=== PATIENT | female | born 1960 | race African-American/Black ===

== ENCOUNTER 2016-10-23 07:14 | Inpatient (IN) | payer OTHER ==
[2016-10-19 10:13] VITALS: BMI 43.9
[2016-10-23] MEDS ORDERED: ROPIVICAINE 0.2%/MORPH PF/KETOROLAC - 51ML DISP.SYRINGE IA ONE ×2 (07:17→10:04)
[2016-10-23] MEDS ORDERED: TRANEXAMIC ACID 1000 MG/10 ML VIAL IVPUSH ONE (07:17)
[2016-10-23] MEDS ORDERED: CEFAZOLIN 2 GM/D5W 50 ML IVPB ONE (07:17)
[2016-10-23] MEDS ORDERED: MIDAZOLAM HCL 2 MG/2 ML SINGLE DOSE VIAL ONE ×2 (07:35→08:57)
[2016-10-23] MEDS ORDERED: EPINEPHrine/PF 1 MG/1 ML (1:1,000) AMPULE ONE (07:35)
[2016-10-23] MEDS ORDERED: ROPIVACAINE HCL 0.5% 30ML VIAL ONE (07:36)
[2016-10-23] MEDS: oxyCODONE HCL 10 MG SUSTAINED ACTING TABLET PO ONE ×2 (07:45→16:53)
[2016-10-23] MEDS: GABAPENTIN 300 MG CAPSULE (FP) PO ONE ×2 (07:45→16:53)
[2016-10-23] MEDS: CELECOXIB 200 MG CAPSULE PO ONE ×2 (07:45→16:53)
--- NOTE | 2016-10-23 09:08 | HP ---
Admitting History and Physical - Admission Chief Complaint: severe right hip avascular necrosis History of Present Illness: 56yo female with progressive worsening bilateral hip pain and degeneration x 2 years, inability to ambulate. In severe pain. Has seen multiple orthopedists who recommended bilateral hip replacement. History Source: Patient, Medical Record Limitations to Obtaining History: No Limitations - Past Medical History Cardiovascular: Yes: HTN, Other (mitral valve prolapse) ...LMP Comment: "NOT IN A LONG TIME" Psych: Yes: Depression Musculoskeletal: Yes: Chronic low back pain, Osteoarthritis - Past Surgical History Past Surgical History: Yes: Laminectomy Additional Past Surgical History: cervical fusion, carpal tunnel release - Smoking History Smoking history: Never smoked Have you smoked in the past 12 months: No Aproximately how many cigarettes per day: 0 - Alcohol/Substance Use Hx Alcohol Use: Yes (OCCASIONAL) - Social History Usual Living Arrangement: Yes: With Spouse Home Medications - Allergies Allergies/Adverse Reactions: Allergies Allergy/AdvReac Type Severity Reaction Status Date / Time No Known Allergies Allergy Verified 10/23/16 07:52 - Home Medications Home Medications: Ambulatory Orders Oxycodone Sr [Oxycontin*SA*] 10 mg PO BID PRN #16 tab.er.12h 06/10/12 Oxycodone HCl/Acetaminophen [Percocet 5-325 mg Tablet] 1 - 2 tab PO Q6H #10 tablet 11/02/12 Gabapentin 600 mg PO DAILY 10/23/16 Physical Examination Vital Signs: Vital Signs Temperature 98 F 10/23/16 08:06 Pulse Rate 68 10/23/16 08:06 Respiratory Rate 17 10/23/16 08:06 Blood Pressure 143/77 10/23/16 08:06 O2 Sat by Pulse Oximetry (%) Constitutional: Yes: Well Nourished, No Distress, Anxious Eyes: Yes: WNL, Conjunctiva Clear HENT: Yes: WNL, Atraumatic, Normocephalic Neck: Yes: WNL Cardiovascular: Yes: WNL, Regular Rate and Rhythm Respiratory: Yes: WNL, Regular Gastrointestinal: Yes: WNL, Soft, Abdomen, Obese ...Rectal Exam: Yes: Deferred Musculoskeletal: Yes: Back Pain, Joint Stiffness, Joint Swelling, Muscle Pain, Muscle Weakness Extremities: Yes: WNL Edema: No Peripheral Pulses WNL: Yes Integumentary: Yes: WNL Neurological: Yes: WNL, Alert, Oriented ...Motor Strength: WNL Psychiatric: Yes: WNL, Alert, Oriented Labs: reviewed in chart Imaging - Results X-ray: Image Reviewed Cat Scan: Report Reviewed, Image Reviewed Problem List - Problems (1) Osteoarthritis of right hip Assessment/Plan: 56yo female with severe bilateral hip OA for right ANITRA Code(s): M16.11 - UNILATERAL PRIMARY OSTEOARTHRITIS, RIGHT HIP Qualifiers: Osteoarthritis type: primary Qualified Code(s): M16.11 - Unilateral primary osteoarthritis, right hip
[2016-10-23] MEDS ORDERED: HYDROmorphone HCL CARPU-JECT 1 MG/1 ML DISP.SYRIN IVPUSH PRN (10:17)
[2016-10-23] MEDS ORDERED: oxyCODONE HCL 5 MG TABLET PO PRN ×2 (10:17→10:31)
[2016-10-23] MEDS ORDERED: LACTATED RINGERS SOLUTION 1,000 ML IV SCH ×2 (10:30→14:00)
[2016-10-23] MEDS ORDERED: ONDANSETRON 4 MG/2 ML VIAL IVPUSH PRN (10:30)
[2016-10-23] MEDS ORDERED: PROMETHAZINE HCL 25 MG/1 ML VIAL IVPUSH PRN (10:33)
[2016-10-23] MEDS ORDERED: TRANEXAMIC ACID 1000 MG/10 ML VIAL ONE (10:53)
[2016-10-23] MEDS ORDERED: ceFAZolin SODIUM 1 GM VIAL ONE (12:16)
[2016-10-23] MEDS ORDERED: BUPIVACAINE HCL/EPINEPHRINE/PF 30 ML VIAL IJ ONE (13:08)
[2016-10-23] MEDS ORDERED: BUPIVACAINE HCL/PF 0.5% (5MG/ML) 10 ML VIAL ONE (13:09)
[2016-10-23] MEDS ORDERED: LIDOCAINE HCL 2% (20ML MULTI-DOSE VIAL) NR ONE (13:16)
[2016-10-23] MEDS ORDERED: MAGNESIUM HYDROX 2400MG/30ML ORAL SUSPENSION 30 ML CUP PO PRN (13:57)
[2016-10-23] MEDS ORDERED: ONDANSETRON 4 MG/2 ML VIAL IVPB PRN (13:57)
[2016-10-23] MEDS ORDERED: MAG HYDROX/AL HYDROX/SIMETH 30 ML UNIT-DOSE CUP PO PRN (13:57)
--- NOTE | 2016-10-23 13:57 | OP ---
Operative Note - Note: Operative Date: 10/23/16 Pre-Operative Diagnosis: right hip OA Operation: right ANITRA Post-Operative Diagnosis: Same as Pre-op Surgeon: Cam Ward Transitions Manager: Maile Michelle Anesthesia: Spinal Estimated Blood Loss (mls): 250
[2016-10-23] MEDS ORDERED: ACETAMINOPHEN 1000 MG/100 ML VIAL (NON FORMULARY) IVPB ONE ×2 (14:30)
[2016-10-23] MEDS ORDERED: KETOROLAC TROMETHAMINE 30 MG/1 ML VIAL IVPUSH ONE (14:30)
[2016-10-23] MEDS ORDERED: traMADol HCL 50 MG TABLET ONE (14:59)
[2016-10-23] MEDS: traMADol HCL 50 MG TABLET PO SCH ×2 (15:00→16:56)
[2016-10-23] MEDS: KETOROLAC TROMETHAMINE 30 MG/1 ML VIAL IVPUSH SCH ×2 (16:56→21:22)
[2016-10-23] MEDS: ACETAMINOPHEN 325 MG TABLET (FP) PO SCH ×2 (17:02→17:03)
[2016-10-23] MEDS: CEFAZOLIN 2 GM/D5W 50 ML IVPB SCH (18:24)
[2016-10-23] MEDS ORDERED: ACETAMINOPHEN 325 MG TABLET (FP) PO SCH (20:30)
[2016-10-23] MEDS: FERROUS SO4 325 MG TABLET (FP) PO SCH (21:23)
[2016-10-23] MEDS: APIXABAN 2.5 MG TABLET PO SCH (21:23)
[2016-10-23] MEDS: ASCORBIC ACID 500 MG TABLET (FP) PO SCH (21:23)
[2016-10-23] MEDS: CELECOXIB 200 MG CAPSULE PO SCH (21:23)
[2016-10-23] MEDS: SENNOSIDES/DOCUSATE COMBO (SENNA PLUS) TABLET (UD) PO SCH (21:24)
[2016-10-23] MEDS ORDERED: GABAPENTIN 300 MG CAPSULE (FP) PO SCH ×2 (22:00)
[2016-10-23] MEDS ORDERED: oxyCODONE HCL 10 MG SUSTAINED ACTING TABLET PO SCH (22:00)
[2016-10-24] MEDS: CEFAZOLIN 2 GM/D5W 50 ML IVPB SCH (01:09)
[2016-10-24] MEDS: ACETAMINOPHEN 325 MG TABLET (FP) PO SCH ×4 (02:10→23:27)
[2016-10-24] MEDS: traMADol HCL 50 MG TABLET PO SCH ×3 (02:11→16:14)
[2016-10-24] MEDS: KETOROLAC TROMETHAMINE 30 MG/1 ML VIAL IVPUSH SCH ×2 (02:12→08:34)
--- NOTE | 2016-10-24 07:23 | CONSULT ---
[id number] for medical management. HISTORY OF PRESENT ILLNESS: patient is a 56 y/o obese female, with a past medical history of bilateral hip degeneration, hypertension (no medications). patient reports she was taking lasix for billateral leg swelling and hypertension. She reports stopping the medication as per the recommendation of her PCP. patient is s/p right david hip replacement under spinal anesthesia. Patient reports feeling well, she reports pain upon movement to the right hip. patient denies any parethesia to the right lower extremity. patient is speaking in full sentences denies any chest pain or shot REVIEW OF SYSTEMS: CONSTITUTIONAL: Absent: fever, chills, diaphoresis, generalized weakness, malaise, loss of appetite, weight change HEENT: Absent: rhinorrhea, nasal congestion, throat pain, throat swelling, difficulty swallowing, mouth swelling, ear pain, eye pain, visual changes CARDIOVASCULAR: Absent: chest pain, syncope, palpitations, irregular heart rate, lightheadedness , peripheral edema RESPIRATORY: Absent: cough, shortness of breath, dyspnea with exertion, orthopnea, wheezing, stridor, hemoptysis GASTROINTESTINAL: Absent: abdominal pain, abdominal distension, nausea, vomiting, diarrhea, constipation, melena, hematochezia GENITOURINARY: Absent: dysuria, frequency, urgency, hesitancy, hematuria, flank pain, genital pain MUSCULOSKELETAL: Present: right hip pain Absent: myalgia, arthralgia, joint swelling, back pain, neck pain SKIN: Absent: rash, itching, pallor HEMATOLOGIC/IMMUNOLOGIC: Absent: easy bleeding, easy bruising, lymphadenopathy, frequent infections ENDOCRINE: Absent: unexplained weight gain, unexplained weight loss, heat intolerance, cold intolerance NEUROLOGIC: Absent: headache, focal weakness or paresthesias, dizziness, unsteady gait, seizure, mental status changes, bladder or bowel incontinence PSYCHIATRIC: Absent: anxiety, depression, suicidal or homicidal ideation, hallucinations. PHYSICAL EXAMINATION Vital Signs - 24 hr 10/23/16 10/23/16 10/23/16 08:06 14:00 14:05 Temperature 98 F 98.5 F 98.5 F Pulse Rate 68 88 85 Respiratory 17 15 15 Rate Blood Pressure 143/77 128/77 130/100 O2 Sat by Pulse 100 100 Oximetry (%) 10/23/16 10/23/16 10/23/16 14:10 14:15 14:30 Temperature 98.5 F 98.5 F 98.5 F Pulse Rate 83 86 84 Respiratory 17 16 17 Rate Blood Pressure 126/77 124/90 111/83 O2 Sat by Pulse 100 100 100 Oximetry (%) 10/23/16 10/23/16 10/23/16 14:45 15:00 15:15 Temperature 98.5 F 98.5 F 98.5 F Pulse Rate 83 88 94 H Respiratory 15 16 17 Rate Blood Pressure 125/79 130/75 129/81 O2 Sat by Pulse 100 100 100 Oximetry (%) 10/23/16 10/23/16 10/23/16 15:30 17:31 21:00 Temperature 97.6 F 98.2 F Pulse Rate 89 96 H Respiratory 17 17 18 Rate Blood Pressure 144/88 130/76 O2 Sat by Pulse 100 95 Oximetry (%) 10/23/16 10/24/16 22:20 06:30 Temperature 98.6 F 98.9 F Pulse Rate 86 97 H Respiratory 18 19 Rate Blood Pressure 127/62 155/66 O2 Sat by Pulse 95 92 L Oximetry (%) GENERAL: Awake, alert, and fully oriented, in no acute distress. HEAD: Normal with no signs of trauma. EYES: Pupils equal, round and reactive to light, extraocular movements intact, sclera anicteric, conjunctiva clear. No lid lag. EARS, NOSE, THROAT: Ears normal, nares patent, oropharynx clear without exudates. Moist mucous membrane, [place] IV NECK: Normal range of motion, supple without lymphadenopathy, JVD, or masses. LUNGS: Breath sounds equal, clear to apexes, diminished to bases, . No wheezes, and no crackles. No accessory muscle use. HEART: Regular rate and rhythm, normal S1 and S2, 3/6 systolic murmur, rub or gallop. ABDOMEN: Soft, nontender, not distended, normoactive bowel sounds, no guarding, no rebound, no masses. No hepatomegaly or splenomegaly. MUSCULOSKELETAL: Normal range of motion at all joints. No bony deformities or tenderness. No CVA tenderness. UPPER EXTREMITIES: 2+ pulses, warm, well-perfused. No cyanosis. No clubbing. Cap refill <2 seconds. No peripheral edema. LOWER EXTREMITIES: 2+ pulses, warm, well-perfused. No calf tenderness. No peripheral edema. NEUROLOGICAL: Cranial nerves II-XII intact. Normal speech. Normal gait. PSYCHIATRIC: Cooperative. Good eye contact. Appropriate mood and affect. SKIN: Warm, dry, normal turgor, no rashes or lesions noted. CBC WBC 8.2 K/mm3 (4.0-10.0) 10/24/16 07:00 RBC 2.59 M/mm3 (3.60-5.2) L 10/24/16 07:00 Hgb 7.4 GM/dl (10.7-15.3) L 10/24/16 07:00 Hct 22.8 % (32.4-45.2) L 10/24/16 07:00 MCV 87.7 fl (80-96) 10/24/16 07:00 MCHC 32.3 g/dl (32.0-36.0) 10/24/16 07:00 RDW 13.4 % (11.6-15.6) 10/24/16 07:00 Plt Count 184 K/MM3 (134-434) 10/24/16 07:00 MPV 6.8 fl (7.5-11.1) L 10/24/16 07:00 CMP Sodium 138 mmol/L (136-145) 10/24/16 07:00 Potassium 4.0 mmol/L (3.5-5.1) 10/24/16 07:00 Chloride 106 mmol/L (98-107) 10/24/16 07:00 Carbon Dioxide 27 mmol/L (22-28) 10/24/16 07:00 Anion Gap 5 (8-16) L 10/24/16 07:00 BUN 12 mg/dl (7-18) 10/24/16 07:00 Creatinine 0.9 mg/dl (0.6-1.3) 10/24/16 07:00 Random Glucose 124 mg/dl (74-106) H 10/24/16 07:00 Calcium 8.1 mg/dl (8.4-10.2) L 10/24/16 07:00 Active Medications Generic Name Dose Route Start Last Admin Trade Name Freq PRN Reason Stop Dose Admin Acetaminophen 650 mg 10/24/16 03:00 10/24/16 02:10 Tylenol - PO 10/26/16 20:29 650 mg Q6H RAHEL Administration Al Hydroxide/Mg Hydroxide 30 ml 10/23/16 13:57 Mylanta Oral Suspension - PO Q4H PRN DYSPEPSIA Apixaban 2.5 mg 10/23/16 22:00 10/23/16 21:23 Eliquis - PO 2.5 mg BID [facility] Administration Ascorbic Acid 500 mg 10/23/16 22:00 10/23/16 21:23 Vitamin C - PO 500 mg BID RAHEL Administration Celecoxib 200 mg 10/23/16 22:00 10/23/16 21:23 Celebrex - PO 200 mg BID [facility] Administration Citalopram Hydrobromide 20 mg 10/24/16 10:00 Celexa - PO DAILY [facility] Ferrous Sulfate 325 mg 10/23/16 22:00 10/23/16 21:23 Feosol - PO 325 mg BID [facility] Administration Gabapentin 300 mg 10/23/16 22:00 10/23/16 21:23 Neurontin - PO 10/26/16 21:59 300 mg BID [facility] Administration Hydromorphone HCl 0.5 mg 10/23/16 10:17 Dilaudid Injection - IVPUSH 10/26/16 10:18 [id number] PRN PAIN Lactated Ringer's 1,000 mls @ 125 mls/hr 10/23/16 10:30 10/23/16 16:55 Lactated Ringers Solution IV Not Given ASDIR [facility] Ketorolac Tromethamine 30 mg 10/23/16 14:30 10/24/16 02:12 Toradol Injection - IVPUSH 10/24/16 08:31 30 mg Q6H [facility] Administration Magnesium Hydroxide 30 ml 10/23/16 13:57 Milk Of Magnesia - PO PRN PRN CONSTIPATION Multivitamins/Minerals/Vitamin C 1 tab 10/24/16 10:00 Tab-A-Vit - PO DAILY [facility] Ondansetron HCl 4 mg 10/23/16 13:57 10/23/16 18:23 Zofran Injection IVPB 4 mg Q6H PRN Administration NAUSEA Oxycodone HCl 10 mg 10/23/16 22:00 10/23/16 21:23 Oxycontin - PO 10/26/16 10:18 10 mg BID RAHEL Administration Oxycodone HCl 5 mg 10/23/16 10:31 Roxicodone - PO Q3H PRN PAIN LEVEL 1-5 Oxycodone HCl 10 mg 10/23/16 10:17 10/23/16 18:24 Roxicodone - PO 10 mg Q3H PRN Administration PAIN LEVEL 6-10 Pantoprazole Sodium 40 mg 10/24/16 10:00 Protonix - PO DAILY RAHEL Senna/Docusate Sodium 2 tablet 10/23/16 22:00 10/23/16 21:24 Pericolace - PO 2 tablet BID RAHEL Administration Tramadol HCl 50 mg 10/23/16 15:00 10/24/16 02:11 Ultram - PO 50 mg Q6H RAHEL Administration ASSESSMENT/PLAN: 1) ortho: s/p right hip replacement - prn pain medication - physicial therapy as per orthopedist 2) heme - hgb 7, repeat hgb at 8pm and AM, if patient is symptomatic recommend transfusion - continue Fe supplements - repeat hgb in am 3) card - pmh of hypertension, not taking any home medications, b/p at goal close monitoring, she reports "billateral leg swelling" and was taking lasix which was d/c several months ago, patient denies any past medical history of CHF, she appears euvolemic on exam, close monitoring. 4) pulm - encourage incentive spirometer, spo2 92% on RA, daughter reports ongoing snoring, denies any history of LAMONTE, recommend pulmonary consult f/e/n - regular diet - replete lytes prn ppx - eliquis - pt - oob Dispo: We will continue to follow the patient. Thank you for this consultative opportunity. Visit type - Emergency Visit Emergency Visit: No - New Patient This patient is new to me today: Yes Date on this admission: 10/24/16 - Critical Care Critical Care patient: No
--- NOTE | 2016-10-24 07:36 | SURG ---
Surgery Manager Medical Writing Note Manager Medical Writing: Maile Michelle PA-C Date of Service: 10/23/16 Diagnosis: right hip OA Procedure: right ANITRA I was present for the entirety of the operative procedure. For further detail, please refer to operative report. Visit type - Case Type Case Type: Scheduled Admission
[2016-10-24 07:56] LABS: MCH 28.4 pg (25.7-33.7); MCHC 32.3 g/dl (32.0-36.0); MEAN CELL VOLUME 87.7 fl (80-96); MEAN PLT VOLUME 6.8 fl (7.5-11.1); PLATELET COUNT 184 K/MM3 (134-434); RDW 13.4 % (11.6-15.6); WHITE BLOOD COUNT 8.2 K/mm3 (4.0-10.0)
[2016-10-24 08:12] LABS: CALCIUM 8.1 mg/dl (8.4-10.2); CREATININE 0.9 mg/dl (0.6-1.3)
--- NOTE | 2016-10-24 08:35 | PN ---
Progress Note (short form) - Note Progress Note: Pt seen and examined. C/o pain. No acute events. Was refusing O2 and incentive spirometry last night. AVSS Selected Entries 10/23/16 10/24/16 22:20 06:30 Temperature 98.9 F Pulse Rate 97 H Respiratory 19 Rate Blood Pressure 155/66 Blood Pressure 95 Mean O2 Sat by Pulse 95 92 L Oximetry (%) Oxygen Delivery Room Air Room Air Method Laboratory Tests 10/24/16 10/24/16 07:00 07:00 WBC 8.2 Hgb 7.4 L Hct 22.8 L Plt Count 184 Sodium 138 Potassium 4.0 Chloride 106 Carbon Dioxide 27 Anion Gap 5 L BUN 12 Creatinine 0.9 Random Glucose 124 H Calcium 8.1 L Gen: NAD RLE: c/d/i, NVID A/P 56yo female POD#1 s/p R ANITRA 1. Pulm consult pending - pt may have obstructed or aspirated while under sedation 2. Acute blood loss anemia but not symptomatic - NO TRANSFUSION 3. Eliquis for DVT ppx - pt is high risk due to poor mobility 4. D/C planning - will likely need SNF because her mobility is severely limited by her other hip which is also severely degenerated due to osteonecrosis Problem List - Problems (1) Osteoarthritis of right hip Code(s): M16.11 - UNILATERAL PRIMARY OSTEOARTHRITIS, RIGHT HIP Qualifiers: Qualified Code(s): M16.11 - Unilateral primary osteoarthritis, right hip
[2016-10-24] MEDS: PANTOPRAZOLE 40 MG TABLET (FP) PO SCH (10:41)
[2016-10-24] MEDS: ASCORBIC ACID 500 MG TABLET (FP) PO SCH ×2 (10:42→21:45)
[2016-10-24] MEDS: CITALOPRAM HYDROBROMIDE 20 MG TABLET (FP) PO SCH (10:42)
[2016-10-24] MEDS: SENNOSIDES/DOCUSATE COMBO (SENNA PLUS) TABLET (UD) PO SCH ×2 (10:42→23:27)
[2016-10-24] MEDS: APIXABAN 2.5 MG TABLET PO SCH ×2 (10:42→23:25)
[2016-10-24] MEDS: FERROUS SO4 325 MG TABLET (FP) PO SCH ×2 (10:42→21:45)
[2016-10-24] MEDS: CELECOXIB 200 MG CAPSULE PO SCH ×2 (10:42→21:45)
[2016-10-24] MEDS: GABAPENTIN 300 MG CAPSULE (FP) PO SCH ×2 (10:42→21:44)
[2016-10-24] MEDS: MULTIVITAMINS (DAILY MVI) TABLET (FP) PO SCH (10:42)
[2016-10-24] MEDS: oxyCODONE HCL 10 MG SUSTAINED ACTING TABLET PO SCH ×2 (10:43→21:45)
[2016-10-24] MEDS: HYDROmorphone HCL 2 MG TABLET PO PRN ×3 (11:30→21:44)
--- NOTE | 2016-10-24 12:21 | SPEC ---
DATE OF OPERATION: 10/23/2016 PREOPERATIVE DIAGNOSIS: Right hip osteoarthritis, possible osteonecrosis. PROCEDURE: Right total hip replacement with MAKOplasty robotic navigation. POSTOPERATIVE DIAGNOSIS: Right hip osteoarthritis, possible osteonecrosis. ATTENDING: Abhay Vital MD [facility] PREVENTION SPECIALIST: ISACC Block ANESTHESIA: Spinal plus sedation. ESTIMATED BLOOD LOSS: 250 mL. COMPLICATIONS: None. SPECIMENS: Resected bone was sent for pathology analysis. DISPOSITION: The patient was transferred to the PACU in stable condition. IMPLANTS USED: [place] Accolade 2 size 5 femoral component, 50-mm acetabular component with 40-mm acetabular screw, MDM head ball and liner. INDICATIONS: This is a 56-year-old female who presented to the office complaining of severe bilateral hip pain, which started 2 years ago and had rapidly and progressive worsening to the point where she was nearly unable to ambulate. The patient was seen and examined by Dr. Vital and diagnosed with severe osteoarthritis and possible osteonecrosis of the femoral head. She was in such severe pain and could barely walk, so she was indicated for surgery as nonoperative treatment such as physical therapy were not going to make any difference for her. The risks, benefits, and alternatives of the procedure were explained to the patient in great detail, and she elected to proceed with the procedure. Initially we had considered doing a bilateral procedure, but the insurance would not allow that, so we settled for the right, which was the most painful hip at the time. DESCRIPTION OF PROCEDURE: On the day of surgery, the patient was taken to the operating room and placed on the OR table. Spinal anesthesia was administered by the anesthesiologist. The patient was then positioned in the lateral decubitus position on the table and all bony prominences were padded. An axillary roll was placed. The operative hip was then prepped and draped in the usual sterile fashion and intravenous antibiotics were given for infection prophylaxis. A surgical time-out was then performed with the team, and the patients identity, procedure, side, availability of implants, and the administration of antibiotics was confirmed. An approximately 15cm longitudinal incision was made through the skin centered on the greater trochanter of the hip. This dissection was carried down through the subcutaneous tissues to the deep fascia. This fascia was then incised and a cobra was placed around the inferior femoral neck. Electrocautery was used to reflect the anterior 40% of the gluteus medius and minimus starting at the musculotendinous junction and leaving a cuff for closure. This was reflected to reveal the capsule of the hip joint. An anterior capsulectomy was performed and the femoral head and neck was visualized. Grade 4 changes were noted diffusely throughout the joint. At this point, three small stab incisions were made superior to the main incision along the iliac crest. Three self-drilling Edu pins were then placed and the Cognitive Code pelvic array was attached. Reference points on the limb were then entered into the robotic device and the limb length deficiency, offset, and femoral neck resection level were then calculated by the software. The hip was then dislocated with traction and external rotation, an oscillating saw was used to make the femoral neck cut at the level previously templated, and the femoral head was removed. Attention was then turned to the acetabulum. Retractors were then placed around the acetabulum and the labrum was removed. An acetabular checkpoint pin and the Cognitive Code software was used to register the contours of the acetabulum. The acetabulum was then reamed in a single stage to the preoperatively templated size using the Cognitive Code robotic arm. The appropriately sized cup was then impacted and had solid fixation as well as the preset inclination and version of 40 and 20 degrees, respectively. A polyethylene liner was then placed in the cup. Attention was then turned back to the femur, which was externally rotated for improved visualization. A femoral neck elevator was used to present the femoral neck cut, a box osteotome was used to enter the femoral canal, and a canal finder was used to go down the femoral shaft. The Oz broaches were used sequentially until the optimal scratch fit was achieved. This correlated to the preoperatively templated size. From here, several different offset head and neck configurations were tested until excellent stability and length was obtained. These measurements were quantified using the Cognitive Code software. All trial components were then removed, the femur was copiously irrigated, and the final components were placed. A 3-minute dilute Betadine lavage was performed as per the CRAWFORD protocol. After this, the knee was again irrigated via pulsatile lavage, and wound closure with begun. Leg length and stability were checked again and found to be excellent. Irrigation was performed again. Wound closure was started by repairing the abductor muscles with a No. 2 Fiberwire stitch in a [place] configuration passed through bone tunnels in the greater trochanter and tied over a bony bridge. This repair was then reinforced with a 0 VLoc 180 barbed suture. Next, No. 1 Polysorb and 0 VLoc 180 was used to close the fascia. The deep subcutaneous tissue was closed with No. 1 Polysorb sutures, and 2-0 Polysorb was used for the superficial subcutaneous tissue. The skin was closed using both 3-0 VLoc 90 suture in a running subcuticular fashion and SwiftSet skin adhesive. The Oz array and pins were removed from the iliac crest and the stab incision sites were irrigated and closed with 4-0 Polysorb sutures and SwiftSet skin adhesive. Once this was completed a sterile dressing was applied. The patient was then awakened and taken to the PACU in stable condition. ABHAY VITAL M.D. ASHLEY/[id number]
[2016-10-24] MEDS ORDERED: MAGNESIUM SULFATE 2 GM in SODIUM CHLORIDE 100 ML IVPB ONE (12:43)
[2016-10-24] MEDS: MAGNESIUM SULF 50% (8.12 MEQ/2 ML-1 GM VIAL) IVPB SCH (15:00)
--- NOTE | 2016-10-24 19:01 | PN ---
Progress Note (short form) - Note Progress Note: PULMONARY CONSULTATION DICTATED 10/24/16 IMP HYPOXEMIA LIKELY SECONDARY TO OSAS S/P R HIP REPLACEMENT HTN ANEMIA PLAN INCENTIVE SPIROMETER DVT PROPHYLAXIS SLEEP STUDIES OUTPATIENT BIPAP AT NIGHT CHEST X-RAY MONITOR H+H IRON SUPPLEMENTATION CONSIDER TRANFUSION REPLETE MG DR HOLBROOK Problem List - Problems (1) Osteoarthritis of right hip Code(s): M16.11 - UNILATERAL PRIMARY OSTEOARTHRITIS, RIGHT HIP Qualifiers: Osteoarthritis type: primary Qualified Code(s): M16.11 - Unilateral primary osteoarthritis, right hip (2) Hypoxemia during surgery Code(s): R09.02 - HYPOXEMIA I97.88 - OTH INTRAOPERATIVE COMPLICATIONS OF THE CIRC SYS, NEC (3) Sleep apnea Code(s): G47.30 - SLEEP APNEA, UNSPECIFIED (4) Anemia Code(s): D64.9 - ANEMIA, UNSPECIFIED
[2016-10-24 20:35] LABS: MCH 29.1 pg (25.7-33.7); MCHC 33.2 g/dl (32.0-36.0); MEAN CELL VOLUME 87.5 fl (80-96); MEAN PLT VOLUME 8.1 fl (7.5-11.1); PLATELET COUNT 195 K/MM3 (134-434); RDW 14.6 % (11.6-15.6); WHITE BLOOD COUNT 9.2 K/mm3 (4.0-10.0)
[2016-10-25] MEDS: traMADol HCL 50 MG TABLET PO SCH ×5 (03:00→21:18)
[2016-10-25] MEDS: ACETAMINOPHEN 325 MG TABLET (FP) PO SCH ×4 (03:00→21:19)
--- NOTE | 2016-10-25 07:27 | PN ---
Progress Note, Physician History of Present Illness: PULMONARY DOING WELL ,-C/O SOB,-COUGH,SLEPT WELL ON BIPAP - Current Medication List Current Medications: Active Medications Acetaminophen (Tylenol -) 650 mg PO Q6H [facility] Stop: 10/26/16 20:29 Last Admin: 10/25/16 03:00 Dose: Not Given Al Hydroxide/Mg Hydroxide (Mylanta Oral Suspension -) 30 ml PO Q4H PRN PRN Reason: DYSPEPSIA Apixaban (Eliquis -) 2.5 mg PO BID [facility] Last Admin: 10/24/16 23:25 Dose: 2.5 mg Ascorbic Acid (Vitamin C -) 500 mg PO BID [facility] Last Admin: 10/24/16 21:45 Dose: 500 mg Celecoxib (Celebrex -) 200 mg PO BID [facility] Last Admin: 10/24/16 21:45 Dose: 200 mg Citalopram Hydrobromide (Celexa -) 20 mg PO DAILY [facility] Last Admin: 10/24/16 10:42 Dose: 20 mg Ferrous Sulfate (Feosol -) 325 mg PO BID [facility] Last Admin: 10/24/16 21:45 Dose: 325 mg Gabapentin (Neurontin -) 600 mg PO BID [facility] Last Admin: 10/24/16 21:44 Dose: 600 mg Hydromorphone HCl (Dilaudid Injection -) 0.5 mg IVPUSH [id number] PRN PRN Reason: PAIN Stop: 10/26/16 10:18 Hydromorphone HCl (Dilaudid -) 4 mg PO Q4H PRN PRN Reason: PAIN LEVEL 1-5 Hydromorphone HCl (Dilaudid -) 6 mg PO Q4H PRN PRN Reason: PAIN LEVEL 6-10 Last Admin: 10/24/16 21:44 Dose: 6 mg Magnesium Hydroxide (Milk Of Magnesia -) 30 ml PO PRN PRN PRN Reason: CONSTIPATION Magnesium Sulfate (Magnesium Sulfate) 2 gm IVPB ONCE [facility] Last Admin: 10/24/16 15:00 Dose: 2 gm Multivitamins/Minerals/Vitamin C (Tab-A-Vit -) 1 tab PO DAILY [facility] Last Admin: 10/24/16 10:42 Dose: 1 tab Ondansetron HCl (Zofran Injection) 4 mg IVPB Q6H PRN PRN Reason: NAUSEA Last Admin: 10/23/16 18:23 Dose: 4 mg Oxycodone HCl (Oxycontin -) 20 mg PO BID [facility] Last Admin: 10/24/16 21:45 Dose: 20 mg Pantoprazole Sodium (Protonix -) 40 mg PO DAILY [facility] Last Admin: 10/24/16 10:41 Dose: 40 mg Senna/Docusate Sodium (Pericolace -) 2 tablet PO BID [facility] Last Admin: 10/24/16 23:27 Dose: 2 tablet Tramadol HCl (Ultram -) 50 mg PO Q6H [facility] Last Admin: 10/25/16 03:00 Dose: Not Given - Objective Vital Signs: Vital Signs Temperature 98.1 F 10/25/16 06:19 Pulse Rate 77 10/25/16 06:19 Respiratory Rate 17 10/25/16 06:19 Blood Pressure 120/61 10/25/16 06:19 O2 Sat by Pulse Oximetry (%) 100 10/25/16 06:19 Constitutional: Yes: Well Nourished, Calm Eyes: Yes: WNL HENT: Yes: WNL Neck: Yes: WNL Cardiovascular: Yes: Regular Rate and Rhythm, S1, S2 Respiratory: Yes: CTA Bilaterally Gastrointestinal: Yes: WNL Extremities: Yes: WNL Edema: No Labs: CBC, BMP 10/24/16 20:00 10/24/16 07:00 - ....Imaging Chest X-ray: Report Reviewed, Image Reviewed (NO INFILTRATES,-EFFUSIONS.NORMAL STUDY) Problem List - Problems (1) Osteoarthritis of right hip Code(s): M16.11 - UNILATERAL PRIMARY OSTEOARTHRITIS, RIGHT HIP Qualifiers: Osteoarthritis type: primary Qualified Code(s): M16.11 - Unilateral primary osteoarthritis, right hip (2) Hypoxemia during surgery Code(s): R09.02 - HYPOXEMIA I97.88 - OTH INTRAOPERATIVE COMPLICATIONS OF THE CIRC SYS, NEC (3) Sleep apnea Code(s): G47.30 - SLEEP APNEA, UNSPECIFIED (4) Anemia Code(s): D64.9 - ANEMIA, UNSPECIFIED Assessment/Plan IMP HYPOXEMIA LIKELY SECONDARY TO OSAS S/P R HIP REPLACEMENT HTN ANEMIA PLAN INCENTIVE SPIROMETER DVT PROPHYLAXIS SLEEP STUDIES OUTPATIENT BIPAP AT [facility] H+H IRON SUPPLEMENTATION TRANSFUSE DR HOLBROOK Problem List - Problems (1) Osteoarthritis of right hip Code(s): M16.11 - UNILATERAL PRIMARY OSTEOARTHRITIS, RIGHT HIP Qualifiers: Osteoarthritis type: primary Qualified Code(s): M16.11 - Unilateral primary osteoarthritis, right hip (2) Hypoxemia during surgery Code(s): R09.02 - HYPOXEMIA I97.88 - OTH INTRAOPERATIVE COMPLICATIONS OF THE CIRC SYS, NEC (3) Sleep apnea Code(s): G47.30 - SLEEP APNEA, UNSPECIFIED (4) Anemia Code(s): D64.9 - ANEMIA, UNSPECIFIED
[2016-10-25 09:10] LABS: MCH 29.2 pg (25.7-33.7); MCHC 33.3 g/dl (32.0-36.0); MEAN CELL VOLUME 87.7 fl (80-96); MEAN PLT VOLUME 7.4 fl (7.5-11.1); PLATELET COUNT 152 K/MM3 (134-434); RDW 13.5 % (11.6-15.6); WHITE BLOOD COUNT 9.1 K/mm3 (4.0-10.0)
[2016-10-25 09:21] LABS: CALCIUM 7.9 mg/dl (8.4-10.2); CREATININE 0.5 mg/dl (0.6-1.3)
[2016-10-25] MEDS: ASCORBIC ACID 500 MG TABLET (FP) PO SCH ×2 (09:40→21:19)
[2016-10-25] MEDS: CELECOXIB 200 MG CAPSULE PO SCH ×2 (09:40→21:17)
[2016-10-25] MEDS: CITALOPRAM HYDROBROMIDE 20 MG TABLET (FP) PO SCH (09:40)
[2016-10-25] MEDS: PANTOPRAZOLE 40 MG TABLET (FP) PO SCH (09:40)
[2016-10-25] MEDS: FERROUS SO4 325 MG TABLET (FP) PO SCH ×2 (09:40→21:18)
[2016-10-25] MEDS: MULTIVITAMINS (DAILY MVI) TABLET (FP) PO SCH (09:40)
[2016-10-25] MEDS: GABAPENTIN 300 MG CAPSULE (FP) PO SCH ×2 (09:40→21:18)
[2016-10-25] MEDS: SENNOSIDES/DOCUSATE COMBO (SENNA PLUS) TABLET (UD) PO SCH ×2 (09:41→23:23)
[2016-10-25] MEDS: APIXABAN 2.5 MG TABLET PO SCH ×2 (09:41→21:19)
[2016-10-25] MEDS: oxyCODONE HCL 10 MG SUSTAINED ACTING TABLET PO SCH ×2 (09:43→21:16)
[2016-10-25] MEDS: HYDROmorphone HCL 2 MG TABLET PO PRN ×4 (09:43→21:20)
--- NOTE | 2016-10-25 12:42 | PN ---
Progress Note (short form) - Note Progress Note: Pt seen and examined. C/o pain. No acute events. Got 2U last night. AVSS Selected Entries 10/25/16 06:19 Temperature 98.1 F Pulse Rate 77 Respiratory 17 Rate Blood Pressure 120/61 O2 Sat by Pulse 100 Oximetry (%) Oxygen Delivery Room Air Method Laboratory Tests 10/24/16 10/24/16 10/24/16 07:00 07:00 20:00 WBC 8.2 9.2 RBC 2.59 L 2.37 L Hgb 7.4 L 6.9 L* Hct 22.8 L 20.8 L MCV 87.7 87.5 MCHC 32.3 33.2 RDW 13.4 14.6 Plt Count 184 195 MPV 6.8 L 8.1 D Sodium 138 Potassium 4.0 Chloride 106 Carbon Dioxide 27 Anion Gap 5 L BUN 12 Creatinine 0.9 Random Glucose 124 H Calcium 8.1 L Magnesium 10/24/16 10/25/16 10/25/16 Unknown 07:00 07:00 WBC 9.1 RBC 2.93 L D Hgb 8.6 L D Hct 25.7 L D MCV 87.7 MCHC 33.3 RDW 13.5 Plt Count 152 D MPV 7.4 L Sodium 136 Potassium 4.1 Chloride 105 Carbon Dioxide 27 Anion Gap 4 L BUN 11 Creatinine 0.5 L D Random Glucose 100 Calcium 7.9 L Magnesium 1.7 L Gen: NAD RLE: c/d/i, NVID A/P 56yo female POD#2 s/p R ANITRA 1. Pulm consult appreciated - pt slept better with CPAP 2. Acute blood loss anemia s/p 2U PRBC - recheck CBC in AM 3. Eliquis for DVT ppx - pt is high risk due to poor mobility 4. D/C planning - d/c to SNF tomorrow if H/H stable Problem List - Problems (1) Osteoarthritis of right hip Code(s): M16.11 - UNILATERAL PRIMARY OSTEOARTHRITIS, RIGHT HIP Qualifiers: Osteoarthritis type: primary Qualified Code(s): M16.11 - Unilateral primary osteoarthritis, right hip
[2016-10-25] MEDS ORDERED: FUROSEMIDE 40 MG/4 ML INJECTABLE VIAL IVPB ONE (12:45)
--- NOTE | 2016-10-25 12:53 | CONS ---
DATE OF CONSULTATION: 10/24/2016 REFERRING PHYSICIAN: Cam Ward MD HISTORY OF PRESENT ILLNESS: The patient is a 56-year-old female with a past medical history of hypertension, currently on no medications, bilateral hip regeneration, osteoarthritis, likely obstructive sleep apnea, admitted to [facility] on October 23 for right hip replacement. Patient is status post right ADRI hip replacement under spinal anesthesia on October 23. Of note is intraoperatively, the patient developed desaturation to 80% at the time LMA was placed with a lead for obstruction as well as hypoxemia. She also was noticed to have bilious material, which was immediately suctioned. Patients O2 saturation improved with LMA, and the procedure was completed without complications. Patient is a nonsmoker. There is no history of occupational exposure to chemical fumes. There is no history of DVT or PE in the past. Of note, she does state that previously during a surgical procedure for carpal tunnel she was also desaturated. Patient states that she is a heavy snorer and has excessive daytime sleepiness. PAST MEDICAL HISTORY: Again includes hypertension, avascular necrosis both hips, likely obstructive sleep apnea. CURRENT MEDICATIONS: Include Tylenol, Mylanta, Eliquis, Neurontin, Celexa, Feosol, Toya-Colace, Celebrex, and Tapavite. REVIEW OF SYSTEMS: No orthopnea. No PND. No chest pain. No palpitations. No cough. No shortness of breath. No abdominal pain. No hip pain. PHYSICAL EXAMINATION: General: The patient is well-developed female, awake, alert, dyspneic, in no acute distress. Vital signs: She is afebrile, blood pressure 110/53, respiratory rate 18, O2 saturation is 96% on room air. HEENT: Head is normocephalic atraumatic. Neck: Supple. Heart: Regular with S1, S2. Chest: Clear. Abdomen: Soft. Bowel sounds positive. Extremities: No cyanosis or edema. LABORATORIES: WBC is 8.2, hemoglobin 7.4, hematocrit 22.8, with a platelet count of 184,000. Magnesium is 1.7, BUN 12, creatinine 0.9. Chest x-ray is pending. IMPRESSION: 1. Status post right hip replacement. 2. Likely obstructive sleep apnea. 3. Hypertension. 4. Obesity. PLAN: Sleep studies, DVT prophylaxis, incentive spirometer postoperatively, chest x-ray. ZAHRAA HOLBROOK M.D. [id number]
[2016-10-25] MEDS: MAGNESIUM SULF 50% (8.12 MEQ/2 ML-1 GM VIAL) IVPB SCH (13:41)
--- NOTE | 2016-10-25 13:42 | PN ---
Physical Exam: SUBJECTIVE: Patient seen and examined, reports feeling much better, took part in physical therapy this AM, denies any dizziness, chest pain or shortness of breath, was placed on bipap last night, reports sleeping well. OBJECTIVE: patient is a 56 y/o obese female, with a past medical history of bilateral hip degeneration, hypertension (no medications). patient is post op day 2, right THR (spinal) Dr Ward. pt received 2 units of prbc last night. Vital Signs Period Temp Pulse Resp BP Sys/Hawthorne Pulse Ox Last 24 Hr 97.8 F-98.9 F 77-93 17-18 110-129/53-71 96-100 PHYSICAL EXAMINATION GENERAL: Awake, alert, and fully oriented, in no acute distress. HEAD: Normal with no signs of trauma. EYES: Pupils equal, round and reactive to light, extraocular movements intact, sclera anicteric, conjunctiva clear. No lid lag. EARS, NOSE, THROAT: Ears normal, nares patent, oropharynx clear without exudates. Moist mucous membrane, mallamapatti IV NECK: Normal range of motion, supple without lymphadenopathy, JVD, or masses. LUNGS: Breath sounds equal, clear to apexes, diminished to bases, . No wheezes, and no crackles. No accessory muscle use. HEART: Regular rate and rhythm, normal S1 and S2, 3/6 systolic murmur, rub or gallop. ABDOMEN: Soft, nontender, not distended, normoactive bowel sounds, no guarding, no rebound, no masses. No hepatomegaly or splenomegaly. MUSCULOSKELETAL: Normal range of motion at all joints. No bony deformities or tenderness. No CVA tenderness. UPPER EXTREMITIES: 2+ pulses, warm, well-perfused. No cyanosis. No clubbing. Cap refill <2 seconds. No peripheral edema. LOWER EXTREMITIES: 2+ pulses, warm, well-perfused. No calf tenderness. No peripheral edema. RIGHT LOWER EXTREMITY: dressing CDI, less than 3 second cap refill, + 4 pedal pulse NEUROLOGICAL: Cranial nerves II-XII intact. Normal speech. Normal gait. PSYCHIATRIC: Cooperative. Good eye contact. Appropriate mood and affect. SKIN: Warm, dry, normal turgor, no rashes or lesions noted. Laboratory Results - last 24 hr 10/24/16 10/24/16 10/24/16 20:00 21:00 21:00 WBC 9.2 RBC 2.37 L Hgb 6.9 L* Hct 20.8 L MCV 87.5 MCHC 33.2 RDW 14.6 Plt Count 195 MPV 8.1 D Sodium Potassium Chloride Carbon Dioxide Anion Gap BUN Creatinine Random Glucose Calcium Blood Type O POSITIVE O POSITIVE Antibody Screen Negative Crossmatch See Detail 10/25/16 10/25/16 07:00 07:00 WBC 9.1 RBC 2.93 L D Hgb 8.6 L D Hct 25.7 L D MCV 87.7 MCHC 33.3 RDW 13.5 Plt Count 152 D MPV 7.4 L Sodium 136 Potassium 4.1 Chloride 105 Carbon Dioxide 27 Anion Gap 4 L BUN 11 Creatinine 0.5 L D Random Glucose 100 Calcium 7.9 L Blood Type Antibody Screen Crossmatch Active Medications Generic Name Dose Route Start Last Admin Trade Name Freq PRN Reason Stop Dose Admin Acetaminophen 650 mg 10/24/16 03:00 10/25/16 09:41 Tylenol - PO 10/26/16 20:29 650 mg Q6H RAHEL Administration Al Hydroxide/Mg Hydroxide 30 ml 10/23/16 13:57 Mylanta Oral Suspension - PO Q4H PRN DYSPEPSIA Apixaban 2.5 mg 10/23/16 22:00 10/25/16 09:41 Eliquis - PO 2.5 mg BID RAHEL Administration Ascorbic Acid 500 mg 10/23/16 22:00 10/25/16 09:40 Vitamin C - PO 500 mg BID RAHEL Administration Celecoxib 200 mg 10/23/16 22:00 10/25/16 09:40 Celebrex - PO 200 mg BID RAHEL Administration Citalopram Hydrobromide 20 mg 10/24/16 10:00 10/25/16 09:40 Celexa - PO 20 mg DAILY RAHEL Administration Ferrous Sulfate 325 mg 10/23/16 22:00 10/25/16 09:40 Feosol - PO 325 mg BID RAHEL Administration Gabapentin 600 mg 10/24/16 10:00 10/25/16 09:40 Neurontin - PO 600 mg BID RAHEL Administration Hydromorphone HCl 0.5 mg 10/23/16 10:17 Dilaudid Injection - IVPUSH 10/26/16 10:18 [id number] PRN PAIN Hydromorphone HCl 4 mg 10/24/16 09:48 Dilaudid - PO Q4H PRN PAIN LEVEL 1-5 Hydromorphone HCl 6 mg 10/24/16 09:49 10/25/16 09:43 Dilaudid - PO 6 mg Q4H PRN Administration PAIN LEVEL 6-10 Magnesium Hydroxide 30 ml 10/23/16 13:57 Milk Of Magnesia - PO PRN PRN CONSTIPATION Magnesium Sulfate 2 gm 10/24/16 13:00 10/24/16 15:00 Magnesium Sulfate IVPB 2 gm ONCE RAHEL Administration Multivitamins/Minerals/Vitamin C 1 tab 10/24/16 10:00 10/25/16 09:40 Tab-A-Vit - PO 1 tab DAILY RAHEL Administration Ondansetron HCl 4 mg 10/23/16 13:57 10/23/16 18:23 Zofran Injection IVPB 4 mg Q6H PRN Administration NAUSEA Oxycodone HCl 20 mg 10/24/16 10:00 10/25/16 09:43 Oxycontin - PO 20 mg BID RAHEL Administration Pantoprazole Sodium 40 mg 10/24/16 10:00 10/25/16 09:40 Protonix - PO 40 mg DAILY RAHEL Administration Senna/Docusate Sodium 2 tablet 10/23/16 22:00 10/25/16 09:41 Pericolace - PO 2 tablet BID RAHEL Administration Tramadol HCl 50 mg 10/23/16 15:00 10/25/16 12:49 Ultram - PO Not Given Q6H [facility] ASSESSMENT/PLAN: 1) ortho: s/p right hip replacement - prn pain medication - physicial therapy as per orthopedist 2) heme - hgb 8.5 after 2 units of prbc, repeat cbc in am - continue Fe supplements - repeat hgb in am 3) card - pmh of hypertension, not taking any home medications, b/p at goal close monitoring 4) pulm - encourage incentive spirometer - pt slept well on bipap, continue bipap tonight, will require pulmonary follow up outpatient - pulmonary consult f/e/n - regular diet - replete lytes prn ppx - eliquis - pt - oob Dispo: We will continue to follow the patient. Thank you for this consultative opportunity. Visit type - Emergency Visit Emergency Visit: No - New Patient This patient is new to me today: No - Critical Care Critical Care patient: No - Discharge Referral Referred to [facility] No
[2016-10-26] MEDS: HYDROmorphone HCL 2 MG TABLET PO PRN ×3 (01:40→14:44)
[2016-10-26] MEDS: ACETAMINOPHEN 325 MG TABLET (FP) PO SCH ×3 (02:59→14:44)
[2016-10-26] MEDS: traMADol HCL 50 MG TABLET PO SCH ×3 (03:00→14:45)
[2016-10-26 06:45] VITALS: BP 119/62; PULSE 71; TEMP 98.1
--- NOTE | 2016-10-26 07:28 | PN ---
Progress Note, Physician History of Present Illness: PULMONARY ALERT,NO DISTRESS,AMBULATING WELL. - Current Medication List Current Medications: Active Medications Acetaminophen (Tylenol -) 650 mg PO Q6H [facility] Stop: 10/26/16 20:29 Last Admin: 10/26/16 02:59 Dose: Not Given Al Hydroxide/Mg Hydroxide (Mylanta Oral Suspension -) 30 ml PO Q4H PRN PRN Reason: DYSPEPSIA Apixaban (Eliquis -) 2.5 mg PO BID [facility] Last Admin: 10/25/16 21:19 Dose: 2.5 mg Ascorbic Acid (Vitamin C -) 500 mg PO BID [facility] Last Admin: 10/25/16 21:19 Dose: 500 mg Celecoxib (Celebrex -) 200 mg PO BID [facility] Last Admin: 10/25/16 21:17 Dose: 200 mg Citalopram Hydrobromide (Celexa -) 20 mg PO DAILY [facility] Last Admin: 10/25/16 09:40 Dose: 20 mg Ferrous Sulfate (Feosol -) 325 mg PO BID [facility] Last Admin: 10/25/16 21:18 Dose: 325 mg Gabapentin (Neurontin -) 600 mg PO BID [facility] Last Admin: 10/25/16 21:18 Dose: 600 mg Hydromorphone HCl (Dilaudid Injection -) 0.5 mg IVPUSH [id number] PRN PRN Reason: PAIN Stop: 10/26/16 10:18 Hydromorphone HCl (Dilaudid -) 4 mg PO Q4H PRN PRN Reason: PAIN LEVEL 1-5 Hydromorphone HCl (Dilaudid -) 6 mg PO Q4H PRN PRN Reason: PAIN LEVEL 6-10 Last Admin: 10/26/16 01:40 Dose: 6 mg Magnesium Hydroxide (Milk Of Magnesia -) 30 ml PO PRN PRN PRN Reason: CONSTIPATION Magnesium Sulfate (Magnesium Sulfate) 2 gm IVPB ONCE [facility] Last Admin: 10/25/16 13:41 Dose: Not Given Multivitamins/Minerals/Vitamin C (Tab-A-Vit -) 1 tab PO DAILY [facility] Last Admin: 10/25/16 09:40 Dose: 1 tab Ondansetron HCl (Zofran Injection) 4 mg IVPB Q6H PRN PRN Reason: NAUSEA Last Admin: 10/23/16 18:23 Dose: 4 mg Oxycodone HCl (Oxycontin -) 20 mg PO BID [facility] Last Admin: 10/25/16 21:16 Dose: 20 mg Pantoprazole Sodium (Protonix -) 40 mg PO DAILY [facility] Last Admin: 10/25/16 09:40 Dose: 40 mg Senna/Docusate Sodium (Pericolace -) 2 tablet PO BID [facility] Last Admin: 10/25/16 23:23 Dose: 2 tablet Tramadol HCl (Ultram -) 50 mg PO Q6H [facility] Last Admin: 10/26/16 03:00 Dose: Not Given - Objective Vital Signs: Vital Signs Temperature 98.1 F 10/26/16 06:00 Pulse Rate 71 10/26/16 06:00 Respiratory Rate 20 10/26/16 06:00 Blood Pressure 119/62 10/26/16 06:00 O2 Sat by Pulse Oximetry (%) 100 10/26/16 06:00 Constitutional: Yes: Well Nourished, Calm Eyes: Yes: WNL HENT: Yes: WNL Neck: Yes: WNL Cardiovascular: Yes: Regular Rate and Rhythm, S1, S2 Respiratory: Yes: CTA Bilaterally Gastrointestinal: Yes: WNL Extremities: Yes: WNL Edema: No Labs: CBC, BMP 10/25/16 07:00 Laboratory Tests 10/26/16 07:00 WBC 9.7 RBC 2.99 L Hgb 8.7 L Hct 26.2 L Plt Count 182 Problem List - Problems (1) Osteoarthritis of right hip Code(s): M16.11 - UNILATERAL PRIMARY OSTEOARTHRITIS, RIGHT HIP Qualifiers: Osteoarthritis type: primary Qualified Code(s): M16.11 - Unilateral primary osteoarthritis, right hip (2) Hypoxemia during surgery Code(s): R09.02 - HYPOXEMIA I97.88 - OTH INTRAOPERATIVE COMPLICATIONS OF THE CIRC SYS, NEC (3) Sleep apnea Code(s): G47.30 - SLEEP APNEA, UNSPECIFIED (4) Anemia Code(s): D64.9 - ANEMIA, UNSPECIFIED Assessment/Plan IMP HYPOXEMIA LIKELY SECONDARY TO OSAS S/P R HIP REPLACEMENT HTN ANEMIA PLAN INCENTIVE SPIROMETER DVT PROPHYLAXIS SLEEP STUDIES OUTPATIENT BIPAP AT OTR DRIVER H+H IRON SUPPLEMENTATION DR HOLBROOK Problem List - Problems (1) Osteoarthritis of right hip Code(s): M16.11 - UNILATERAL PRIMARY OSTEOARTHRITIS, RIGHT HIP Qualifiers: Osteoarthritis type: primary Qualified Code(s): M16.11 - Unilateral primary osteoarthritis, right hip (2) Hypoxemia during surgery Code(s): R09.02 - HYPOXEMIA I97.88 - OTH INTRAOPERATIVE COMPLICATIONS OF THE CIRC SYS, NEC (3) Sleep apnea Code(s): G47.30 - SLEEP APNEA, UNSPECIFIED (4) Anemia Code(s): D64.9 - ANEMIA, UNSPECIFIED
[2016-10-26 08:55] LABS: BASOPHIL 0.4 % (0-2.0); EOSINOPHIL 4.4 % (0-4.5); MCH 29.2 pg (25.7-33.7); MCHC 33.3 g/dl (32.0-36.0); MEAN CELL VOLUME 87.7 fl (80-96); MEAN PLT VOLUME 7.3 fl (7.5-11.1); NEUTROPHILS 72.8 % (42.8-82.8); PLATELET COUNT 182 K/MM3 (134-434); RDW 14.2 % (11.6-15.6); WHITE BLOOD COUNT 9.7 K/mm3 (4.0-10.0)
[2016-10-26 09:07] LABS: CALCIUM 8.3 mg/dl (8.4-10.2); CREATININE 0.6 mg/dl (0.6-1.3)
[2016-10-26] MEDS: ASCORBIC ACID 500 MG TABLET (FP) PO SCH (09:11)
[2016-10-26] MEDS: CITALOPRAM HYDROBROMIDE 20 MG TABLET (FP) PO SCH (09:11)
[2016-10-26] MEDS: APIXABAN 2.5 MG TABLET PO SCH (09:11)
[2016-10-26] MEDS: PANTOPRAZOLE 40 MG TABLET (FP) PO SCH (09:11)
[2016-10-26] MEDS: MULTIVITAMINS (DAILY MVI) TABLET (FP) PO SCH (09:11)
[2016-10-26] MEDS: CELECOXIB 200 MG CAPSULE PO SCH (09:11)
[2016-10-26] MEDS: GABAPENTIN 300 MG CAPSULE (FP) PO SCH (09:12)
[2016-10-26] MEDS: FERROUS SO4 325 MG TABLET (FP) PO SCH (09:12)
[2016-10-26] MEDS: SENNOSIDES/DOCUSATE COMBO (SENNA PLUS) TABLET (UD) PO SCH (09:12)
[2016-10-26] MEDS: oxyCODONE HCL 10 MG SUSTAINED ACTING TABLET PO SCH (09:12)
--- NOTE | 2016-10-26 13:58 | PN ---
Progress Note (short form) - Note Progress Note: Pt seen and examined. doing well. no complaints AVSS Selected Entries 10/26/16 06:00 Temperature 98.1 F Pulse Rate 71 Respiratory 20 Rate Blood Pressure 119/62 O2 Sat by Pulse 100 Oximetry (%) Oxygen Delivery Room Air Method Laboratory Tests 10/26/16 10/26/16 07:00 07:00 WBC 9.7 Hgb 8.7 L Hct 26.2 L Plt Count 182 Sodium 139 Potassium 4.2 Chloride 107 Carbon Dioxide 27 Anion Gap 5 L BUN 9 Creatinine 0.6 Random Glucose 93 Calcium 8.3 L Gen: NAD RLE: c/d/i, NVID A/P 56yo female POD#3 s/p R ANITRA 1. PT/OOB - WBAT RLE 4. D/C to SNF today, f/u in 2 weeks as outpt Problem List - Problems (1) Osteoarthritis of right hip Code(s): M16.11 - UNILATERAL PRIMARY OSTEOARTHRITIS, RIGHT HIP Qualifiers: Osteoarthritis type: primary Qualified Code(s): M16.11 - Unilateral primary osteoarthritis, right hip
--- NOTE | 2016-10-26 14:02 | PN ---
Physical Exam: SUBJECTIVE: Patient seen and examined, reports feeling much better, ambulatory at bedside with a walker denies any dizziness, reports pain is well controlled OBJECTIVE: patient is a 56 y/o obese female, with a past medical history of bilateral hip degeneration, hypertension (no medications). patient is post op day 2, right THR (spinal) Dr Ward. pt received 2 units of prbc 10/24 Vital Signs Period Temp Pulse Resp BP Sys/Hawthorne Pulse Ox Last 24 Hr 98.1 F-98.6 F 71-88 18-20 119-126/62-63 95-100 PHYSICAL EXAMINATION GENERAL: Awake, alert, and fully oriented, in no acute distress. HEAD: Normal with no signs of trauma. EYES: Pupils equal, round and reactive to light, extraocular movements intact, sclera anicteric, conjunctiva clear. No lid lag. EARS, NOSE, THROAT: Ears normal, nares patent, oropharynx clear without exudates. Moist mucous membrane, mallamapatti IV NECK: Normal range of motion, supple without lymphadenopathy, JVD, or masses. LUNGS: Breath sounds equal, clear to apexes, diminished to bases, . No wheezes, and no crackles. No accessory muscle use. HEART: Regular rate and rhythm, normal S1 and S2, 3/6 systolic murmur, rub or gallop. ABDOMEN: Soft, nontender, not distended, normoactive bowel sounds, no guarding, no rebound, no masses. No hepatomegaly or splenomegaly. MUSCULOSKELETAL: Normal range of motion at all joints. No bony deformities or tenderness. No CVA tenderness. UPPER EXTREMITIES: 2+ pulses, warm, well-perfused. No cyanosis. No clubbing. Cap refill <2 seconds. No peripheral edema. LOWER EXTREMITIES: 2+ pulses, warm, well-perfused. No calf tenderness. No peripheral edema. RIGHT LOWER EXTREMITY: dressing CDI, less than 3 second cap refill, + 4 pedal pulse NEUROLOGICAL: Cranial nerves II-XII intact. Normal speech. Normal gait. PSYCHIATRIC: Cooperative. Good eye contact. Appropriate mood and affect. SKIN: Warm, dry, normal turgor, no rashes or lesions noted. Laboratory Results - last 24 hr 10/25/16 10/26/16 10/26/16 Unknown 07:00 07:00 WBC 9.7 RBC 2.99 L Hgb 8.7 L Hct 26.2 L MCV 87.7 MCHC 33.3 RDW 14.2 Plt Count 182 MPV 7.3 L Neutrophils % 72.8 Lymphocytes % 14.4 Monocytes % 8.0 Eosinophils % 4.4 Basophils % 0.4 Sodium 139 Potassium 4.2 Chloride 107 Carbon Dioxide 27 Anion Gap 5 L BUN 9 Creatinine 0.6 Random Glucose 93 Calcium 8.3 L Magnesium 2.2 D Active Medications Generic Name Dose Route Start Last Admin Trade Name Freq PRN Reason Stop Dose Admin Acetaminophen 650 mg 10/24/16 03:00 10/26/16 08:13 Tylenol - PO 10/26/16 20:29 650 mg Q6H RAHEL Administration Al Hydroxide/Mg Hydroxide 30 ml 10/23/16 13:57 Mylanta Oral Suspension - PO Q4H PRN DYSPEPSIA Apixaban 2.5 mg 10/23/16 22:00 10/26/16 09:11 Eliquis - PO 2.5 mg BID [facility] Administration Ascorbic Acid 500 mg 10/23/16 22:00 10/26/16 09:11 Vitamin C - PO 500 mg BID RAHEL Administration Celecoxib 200 mg 10/23/16 22:00 10/26/16 09:11 Celebrex - PO 200 mg BID RAHEL Administration Citalopram Hydrobromide 20 mg 10/24/16 10:00 10/26/16 09:11 Celexa - PO 20 mg DAILY [facility] Administration Ferrous Sulfate 325 mg 10/23/16 22:00 10/26/16 09:12 Feosol - PO 325 mg BID RAHEL Administration Gabapentin 600 mg 10/24/16 10:00 10/26/16 09:12 Neurontin - PO 600 mg BID [facility] Administration Hydromorphone HCl 4 mg 10/24/16 09:48 Dilaudid - PO Q4H PRN PAIN LEVEL 1-5 Hydromorphone HCl 6 mg 10/24/16 09:49 10/26/16 08:13 Dilaudid - PO 6 mg Q4H PRN Administration PAIN LEVEL 6-10 Magnesium Hydroxide 30 ml 10/23/16 13:57 Milk Of Magnesia - PO PRN PRN CONSTIPATION Magnesium Sulfate 2 gm 10/24/16 13:00 10/25/16 13:41 Magnesium Sulfate IVPB Not Given ONCE [facility] Multivitamins/Minerals/Vitamin C 1 tab 10/24/16 10:00 10/26/16 09:11 Tab-A-Vit - PO 1 tab DAILY RAHEL Administration Ondansetron HCl 4 mg 10/23/16 13:57 10/23/16 18:23 Zofran Injection IVPB 4 mg Q6H PRN Administration NAUSEA Oxycodone HCl 20 mg 10/24/16 10:00 10/26/16 09:12 Oxycontin - PO 20 mg BID RAHEL Administration Pantoprazole Sodium 40 mg 10/24/16 10:00 10/26/16 09:11 Protonix - PO 40 mg DAILY RAHEL Administration Senna/Docusate Sodium 2 tablet 10/23/16 22:00 10/26/16 09:12 Pericolace - PO 2 tablet BID RAHEL Administration Tramadol HCl 50 mg 10/23/16 15:00 10/26/16 08:12 Ultram - PO 50 mg Q6H RAHEL Administration ASSESSMENT/PLAN: 1) ortho: s/p right hip replacement - prn pain medication - physicial therapy as per orthopedist 2) heme - hgb 8.7, after 2 units of prbc, stable - continue Fe supplements 3) card - pmh of hypertension, not taking any home medications, b/p at goal close monitoring 4) pulm - encourage incentive spirometer - pt slept well on bipap, continue bipap in rehab, will require pulmonary follow up outpatient - pulmonary consulted and followed f/e/n - regular diet - replete lytes prn ppx - eliquis - pt - oob Dispo: We will continue to follow the patient. Thank you for this consultative opportunity. Visit type - Emergency Visit Emergency Visit: No - New Patient This patient is new to me today: No - Critical Care Critical Care patient: No - Discharge Referral Referred to [facility] No
--- NOTE | 2016-10-26 14:08 | DS ---
Physical Examination Vital Signs: Vital Signs Temperature 98.1 F 10/26/16 06:00 Pulse Rate 71 10/26/16 06:00 Respiratory Rate 20 10/26/16 06:00 Blood Pressure 119/62 10/26/16 06:00 O2 Sat by Pulse Oximetry (%) 100 10/26/16 06:00 Labs: CBC, BMP 10/26/16 07:00 10/26/16 07:00 Discharge Summary Reason For Visit: SEVERE ARTHRITIS IN BILATERAL HIP Current Active Problems Anemia (Acute) Hypoxemia during surgery (Acute) Osteoarthritis of right hip (Acute) Sleep apnea (Acute) Procedures: Principal: TOTAL HIP REPLACEMENT Hospital Course: Admitted for elective surgery. Procedure performed without complications. Pt received postoperative antibiotic prophylaxis and DVT ppx. Ambulated with physical therapy. Stable for discharge home with outpatient followup. Condition: Stable - Instructions Diet, Activity, Other Instructions: Dr Ward - Hip Replacement Instructions Keep the Aquacel dressing on until removed by Dr. Ward in 10-14 days - it is antibacterial and waterproof and you can shower with it on. Call the office for a follow-up appointment with Dr. Ward in 10-14 days. [phone] Take one Aspirin 325mg daily for 6 weeks to prevent blood clots in your legs. Take one Pantoprazole 40mg daily for 6 weeks to protect against heartburn and ulcers. Take Celebrex 200mg twice daily for 30 days to reduce swelling and inflammation. Activity: You can put as much weight on the operative leg as you want. For the first 6 weeks, all you need to do is walk around the house, go up/down stairs, and sit down/get up. After 6 weeks when everything is healed (and bone has grown into the implant) you will be sent for more intensive outpatient physical therapy. Always use a walker or cane for balance and to prevent falls. FOR DVT PROPHYLAXIS - ELIQUIS BID X 35 DAYS Disposition: HALFWAY FACILITY - Home Medications Comprehensive Discharge Medication List: Ambulatory Orders Acetaminophen [Tylenol .Regular Strength -] 650 mg PO Q6H tablet 10/26/16 Apixaban [Eliquis -] 2.5 mg PO BID #36 tablet 10/26/16 Ascorbic Acid [Vitamin C -] 500 mg PO BID tablet 10/26/16 Citalopram Hydrobromide [Celexa -] 20 mg PO DAILY #30 tablet 10/26/16 Magnesium Sulfate 2 gm IVPB ONCE #1 vial 10/26/16 Multivitamins [Multivit ([facility] Formulary)] 1 tab PO DAILY tab 10/26/16
[2016-10-26] MEDS: MAGNESIUM SULF 50% (8.12 MEQ/2 ML-1 GM VIAL) IVPB SCH (14:45)
--- NOTE | 2016-10-26 14:45 | PATH ---
Surgical Pathology Report Patient Name: CYNTHIA PHAN Med. Rec. #: [id number] /Age/Gender: 1960 (Age: 56) / F Account: [id number] Location: [facility] Taken: 10/23/2016 Received: 10/23/2016 Reported: 10/26/2016 Physicians: Cam Ward M.D. Specimen(s) Received RIGHT FEMORAL HEAD Clinical History Osteoarthritis right Final Diagnosis BONE, RIGHT FEMORAL HEAD, REPLACEMENT: DEGENERATIVE JOINT DISEASE. Electronically Signed Denzel Costa M.D. Gross Description Received in formalin, labeled "right femoral head," is a 5.0 x 4.3 x 4.0 cm. femoral head with a 1 cm in length portion of femoral neck attached. The margin of resection is smooth. No areas of eburnation are identified. The articular surface is burch-brown and diffusely nodular and granular. The underlying trabecular bone is yellow and hard. Transmission Calibration Engineer sections are submitted in one cassette, following decalcification. /10/25/2016 [facility]10/25/2016
== END 2016-10-26 15:30 | DRG 470 ==
LOC: FM/S 07:14
PROVIDERS: ADMIT Student in an Organized Health Care Education/Training Program; ATTEND Student in an Organized Health Care Education/Training Program
PROC: 8E0Y0CZ Robotic Assisted Procedure of Lower Extremity, Open Approach (ICD-10-PCS; 2016-10-23)
PROC: 0SR90JZ Replacement of Right Hip Joint with Synthetic Substitute, Open Approach (ICD-10-PCS; principal; 2016-10-23 10:01)
PROC: 30233N1 Transfusion of Nonautologous Red Blood Cells into Peripheral Vein, Percutaneous Approach (ICD-10-PCS; 2016-10-24)
PROC: 5A09357 Assistance with Respiratory Ventilation, Less than 24 Consecutive Hours, Continuous Positive Airway Pressure (ICD-10-PCS; 2016-10-24)
DX: M16.11 Unilateral primary osteoarthritis, right hip (principal); Z68.41 Body mass index [BMI] 40.0-44.9, adult; D62 Acute posthemorrhagic anemia; M87.9 Osteonecrosis, unspecified; R09.02 Hypoxemia; I97.88 Other intraoperative complications of the circulatory system, not elsewhere classified; I10 Essential (primary) hypertension; I34.1 Nonrheumatic mitral (valve) prolapse; E66.9 Obesity, unspecified; Z98.1 Arthrodesis status; E55.9 Vitamin D deficiency, unspecified; G47.30 Sleep apnea, unspecified
CPT/HCPCS: 36415; 36430; 71020-TC; 73502-TC-RT; 80048; 83735; 85025; 85027; 86900; 86901; 88304-TC; 88311-TC; 94010; 94660; 94760; 97116-GP; 97162-PG; P9038; P9058

== ENCOUNTER 2018-03-21 08:18 | Inpatient (IN) | payer OTHER ==
[2018-03-11 11:34] VITALS: BMI 34.3
--- NOTE | 2018-03-21 07:30 | HP ---
Admitting History and Physical - Admission Chief Complaint: left hip osteoarthritis x years History of Present Illness: 58 year old female presents in regard to her left hip. Longstanding history of left hip osteoarthritis. Patient complains of pain, limited ROM, difficulty ambulating and difficulty with ADLs. Patient has failed conservative treatment options including PO medications, activity modification, exercise program and injections. At this point, patient would like to proceed with surgical intervention - left total hip arthroplasty, MAKOplasty. History Source: Patient - Past Medical History Cardiovascular: Yes: HTN, Other (mitral valve prolapse) Psych: Yes: Depression Musculoskeletal: Yes: Chronic low back pain, Osteoarthritis - Past Surgical History Past Surgical History: Yes: Laminectomy Additional Past Surgical History: See written history & physical. - Advance Directives Advance Directives: Yes: Health Care Proxy - Smoking History Smoking history: Never smoked Have you smoked in the past 12 months: No Aproximately how many cigarettes per day: 0 - Alcohol/Substance Use Hx Alcohol Use: No (OCCASIONAL) Home Medications - Allergies Allergies/Adverse Reactions: Allergies Allergy/AdvReac Type Severity Reaction Status Date / Time No Known Allergies Allergy Verified 03/11/18 11:19 - Home Medications Home Medications: Ambulatory Orders Cyclobenzaprine HCl [Flexeril 10 mg] 10 mg PO BID PRN 03/11/18 Furosemide 20 mg PO DAILY 03/11/18 Gabapentin 600 mg PO TID 03/11/18 Morphine *Sr* [Ms Contin -] 30 mg PO Q8H 03/11/18 Multivit-Min/Folic Acid/Ccr599 [Alive Women's Gummy Vitamins] 1 each PO DAILY Oxycodone HCl/Acetaminophen [Percocet 10-325 mg Tablet] 1 each PO Q4H 03/11/18 Ramipril 10 mg PO DAILY 03/11/18 Review of Systems - Review of Systems Musculoskeletal: reports: Decreased ROM (left hip), Joint Pain (left hip) Physical Examination Constitutional: Yes: Well Nourished, No Distress Eyes: Yes: Conjunctiva Clear HENT: Yes: Atraumatic, Normocephalic Neck: Yes: Supple Cardiovascular: Yes: Regular Rate and Rhythm Respiratory: Yes: Regular Gastrointestinal: Yes: Soft ...Rectal Exam: Yes: Deferred Musculoskeletal: Yes: Joint Stiffness (left hip) Assessment/Plan 58 year old female presents in regard to her left hip. Longstanding history of left hip osteoarthritis. Patient complains of pain, limited ROM, difficulty ambulating and difficulty with ADLs. Patient has failed conservative treatment options including PO medications, activity modification, exercise program and injections. At this point, patient would like to proceed with surgical intervention - left total hip arthroplasty, MAKOplasty. Pros, cons, risks, benefits and alternatives of a left total hip arthroplasty - MAKOplasty, were discussed with the patient at length. Patient confirms their understanding and consents tot proceed with a left total hip arthroplasty, MAKOplasty.
[~2018-03-21 08:18] MED LIST: CEFAZOLIN 2 GM in DEXTROSE 5%-WATER - 50 ML IVPB ONE; CELECOXIB 200 MG CAPSULE PO ONE; GABAPENTIN 300 MG CAPSULE (FP) PO ONE; PANTOPRAZOLE 40 MG TABLET (FP) PO ONE; ROPIVICAINE 0.2%/MORPH PF/KETOROLAC - 51ML DISP.SYRINGE IA ONE; TRANEXAMIC ACID 1000 MG/10 ML VIAL IVPUSH ONE; VANCOMYCIN 1,250 MG in DEXTROSE 5%-WATER - 250 ML IVPB ONE; oxyCODONE HCL 10 MG SUSTAINED ACTING TABLET PO ONE
[2018-03-21] MEDS ORDERED: DEXAMETHASONE SOD PHOSPHATE/PF 10 MG/ML SDV ONE (08:57)
[2018-03-21] MEDS ORDERED: EPINEPHrine/PF 1 MG/1 ML (1:1,000) AMPULE ONE (08:57)
[2018-03-21] MEDS ORDERED: BUPIVACAINE HCL/PF (5 MG/ML) 30 ML VIAL IJ ONE (08:58)
[2018-03-21] MEDS ORDERED: MIDAZOLAM HCL 2 MG/2 ML SINGLE DOSE VIAL ONE ×2 (08:58→11:28)
[2018-03-21] MEDS ORDERED: VANCOMYCIN 1,250 MG in DEXTROSE 5%-WATER - 250 ML IVPB ONE (09:30)
[2018-03-21] MEDS ORDERED: VANCOMYCIN 1,000 MG VIAL (RESTRICTED TO ID ONLY) ONE ×2 (10:01→11:39)
[2018-03-21] MEDS ORDERED: TRANEXAMIC ACID 1000 MG/10 ML VIAL ONE ×3 (10:01→14:09)
[2018-03-21] MEDS ORDERED: ceFAZolin SODIUM 1 GM VIAL ONE ×2 (10:01→11:39)
[2018-03-21] MEDS ORDERED: LIDOCAINE HCL/PF 2% SDV 5ML VIAL ONE (11:24)
[2018-03-21] MEDS ORDERED: PROPOFOL 20 ML ONE ×4 (12:04→13:36)
[2018-03-21] MEDS ORDERED: ROPIVICAINE 0.2%/MORPH PF/KETOROLAC - 51ML DISP.SYRINGE IA ONE ×2 (12:15→13:45)
[2018-03-21] MEDS ORDERED: LABETALOL HCL 5 MG/1 ML (100MG/20 ML VIAL) ONE (13:27)
[2018-03-21] MEDS ORDERED: BUPIVACAINE 0.75% IN DEXTROSE/PF 2ML AMPULE NR ONE (13:38)
[2018-03-21] MEDS ORDERED: ceFAZolin SODIUM 1 GM VIAL IVPB ONE (13:43)
[2018-03-21] MEDS ORDERED: TRANEXAMIC ACID 1000 MG/10 ML VIAL IVPB ONE (13:44)
[2018-03-21] MEDS ORDERED: VANCOMYCIN 1,000 MG VIAL (RESTRICTED TO ID ONLY) IVPB ONE (13:44)
[2018-03-21] MEDS ORDERED: BACITRACIN 15 GM TUBE TOPICAL OINTMENT ONE (14:42)
--- NOTE | 2018-03-21 15:04 | OP ---
Operative Note - Note: Operative Date: 03/21/18 Pre-Operative Diagnosis: left hip OA Operation: left ADRI ANITRA Post-Operative Diagnosis: Same as Pre-op Surgeon: Cam Ward Plug Stitcher: Veronica Moore Anesthesia: Spinal Estimated Blood Loss (mls): 500
[2018-03-21] MEDS ORDERED: CYCLOBENZAPRINE HCL 10 MG TABLET (FP) PO PRN (15:06)
[2018-03-21] MEDS ORDERED: ONDANSETRON 4 MG/2 ML VIAL IVPUSH PRN (15:08)
[2018-03-21] MEDS ORDERED: MAGNESIUM HYDROX 2400MG/30ML ORAL SUSPENSION 30 ML CUP PO PRN (15:08)
[2018-03-21] MEDS ORDERED: MAG HYDROX/AL HYDROX/SIMETH 30 ML UNIT-DOSE CUP PO PRN (15:08)
[2018-03-21] MEDS ORDERED: oxyCODONE HCL 5 MG TABLET PO PRN (15:13)
[2018-03-21] MEDS: KETOROLAC TROMETHAMINE 30 MG/1 ML VIAL IVPUSH SCH ×2 (15:15→20:21)
[2018-03-21] MEDS: traMADol HCL 50 MG TABLET PO SCH ×2 (15:15→20:21)
[2018-03-21] MEDS ORDERED: LACTATED RINGERS SOLUTION 1,000 ML IV SCH (16:45)
[2018-03-21] MEDS ORDERED: ACETAMINOPHEN 1000 MG/100 ML VIAL (NON FORMULARY) IVPB ONE (17:00)
[2018-03-21] MEDS: morphine SO4 SUSTAINED ACTING 30 MG TABLET.SA PO SCH (20:22)
[2018-03-21] MEDS: GABAPENTIN 300 MG CAPSULE (FP) PO SCH (21:45)
[2018-03-21] MEDS: ASCORBIC ACID 500 MG TABLET (FP) PO SCH (21:46)
[2018-03-21] MEDS: SENNOSIDES/DOCUSATE COMBO (SENNA PLUS) TABLET (UD) PO SCH (21:46)
[2018-03-21] MEDS ORDERED: CEFAZOLIN 2 GM/D5W 2 GM/50 ML ML IVPB SCH (22:00)
[2018-03-22] MEDS ORDERED: DEXAMETHASONE SOD PHOSPHATE 10 MG/1 ML VIAL IVPB ONE
[2018-03-22] MEDS ORDERED: CEFAZOLIN 2 GM/D5W 2 GM/50 ML ML IVPB SCH (02:30)
[2018-03-22] MEDS: KETOROLAC TROMETHAMINE 30 MG/1 ML VIAL IVPUSH SCH ×3 (02:36→16:16)
[2018-03-22] MEDS: oxyCODONE HCL 5 MG TABLET PO PRN ×2 (02:36→16:22)
[2018-03-22] MEDS: morphine SO4 SUSTAINED ACTING 30 MG TABLET.SA PO SCH ×3 (06:40→21:39)
[2018-03-22] MEDS: GABAPENTIN 300 MG CAPSULE (FP) PO SCH ×3 (06:41→21:40)
[2018-03-22] MEDS: traMADol HCL 50 MG TABLET PO SCH ×3 (06:41→17:51)
[2018-03-22] MEDS: FERROUS SO4 325 MG TABLET (FP) PO SCH ×2 (08:00→17:53)
[2018-03-22 08:11] LABS: HEMATOCRIT 23.6 % (32.4-45.2); HEMOGLOBIN 7.6 GM/dl (10.7-15.3); MCH 29.1 pg (25.7-33.7); MCHC 32.3 g/dl (32.0-36.0); MEAN CELL VOLUME 90.1 fl (80-96); MEAN PLT VOLUME 7.7 fl (7.5-11.1); PLATELET COUNT 199 K/MM3 (134-434); RBC 2.62 M/mm3 (3.60-5.2); RDW 13.6 % (11.6-15.6); WHITE BLOOD COUNT 8.8 K/mm3 (4.0-10.8)
[2018-03-22 08:24] LABS: ANION GAP 5 MMOL/L (8-16); BLOOD UREA NITROGEN 18 mg/dl (7-18); CALCIUM 8.2 mg/dl (8.4-10.2); CHLORIDE 108 mmol/L (98-107); CO2 24 mmol/L (22-28); CREATININE 0.7 mg/dl (0.6-1.3); GLUCOSE,RANDOM 138 mg/dl (74-106); POTASSIUM 4.6 mmol/L (3.5-5.1); SODIUM 137 mmol/L (136-145)
--- NOTE | 2018-03-22 09:25 | PN ---
Progress Note (short form) - Note Progress Note: 58F POD1 s/p left THR under spinal anesthetic with peripheral nerve block for pain relief. Pt states that pain is well controlled and reports no anesthetic complications. AVSS. Motor and sensory function intact in bilateral lower extremities. Continue current regimen.
[2018-03-22] MEDS: FUROSEMIDE 20 MG TABLET (FP) PO SCH (09:54)
[2018-03-22] MEDS: APIXABAN 2.5 MG TABLET PO SCH ×2 (09:54→21:39)
[2018-03-22] MEDS: RAMIPRIL 5 MG CAPSULE (FP) PO SCH (09:54)
[2018-03-22] MEDS: SENNOSIDES/DOCUSATE COMBO (SENNA PLUS) TABLET (UD) PO SCH ×2 (09:55→21:40)
[2018-03-22] MEDS: PANTOPRAZOLE 40 MG TABLET (FP) PO SCH (09:55)
[2018-03-22] MEDS: ASCORBIC ACID 500 MG TABLET (FP) PO SCH ×2 (09:56→21:40)
[2018-03-22] MEDS ORDERED: MULTIVITAMINS (DAILY MVI) TABLET (FP) PO SCH (10:00)
[2018-03-22 22:16] VITALS: PULSE 92
--- NOTE | 2018-03-22 22:29 | PN ---
Progress Note (short form) - Note Progress Note: Pt seen and examined. Doing well. [place] lightheaded when up with PT. Afebrile Selected Entries 03/22/18 22:09 Temperature 98.3 F Pulse Rate 92 H Respiratory 20 Rate Blood Pressure 118/57 Laboratory Tests 03/22/18 03/22/18 08:00 08:00 WBC 8.8 Hgb 7.6 L Hct 23.6 L D Plt Count 199 Sodium 137 Potassium 4.6 Chloride 108 H Carbon Dioxide 24 Anion Gap 5 L BUN 18 Creatinine 0.7 Creat Clearance w eGFR > 60 Random Glucose 138 H D Calcium 8.2 L Gen: NAD LLE: c/d/i, NVID A/P 58yo female POD#1 s/p L ANITRA Transfuse 1U PRBCs overnight Recheck CBC in am PT/OOB Plan for d/c home tomorrow.
--- NOTE | 2018-03-22 23:02 | DS ---
Physical Examination Vital Signs: Vital Signs Temperature 98.3 F 03/22/18 22:09 Pulse Rate 92 H 03/22/18 22:09 Respiratory Rate 20 03/22/18 22:09 Blood Pressure 118/57 03/22/18 22:09 O2 Sat by Pulse Oximetry (%) 96 03/22/18 22:09 Labs: CBC, BMP 03/22/18 08:00 03/22/18 08:00 Discharge Summary Reason For Visit: OSTEOARTHRITIS LEFT HIP Current Active Problems Osteoarthritis of left hip (Acute) Procedures: Principal: left ADRI ANITRA Hospital Course: Admitted for elective surgery. Procedure performed without complications. Pt received postoperative antibiotic prophylaxis and DVT ppx. Ambulated with physical therapy. Stable for discharge home with outpatient followup. Condition: Stable - Instructions Diet, Activity, Other Instructions: Dr Ward - Hip Replacement Instructions Keep the Aquacel dressing on until removed by Dr. Wadr in 10-14 days - it is antibacterial and waterproof and you can shower with it on. Call the office for a follow-up appointment with Dr. Ward in 10-14 days. Take ELIQUIS 2.5mg twice daily for 35 days to prevent blood clots in your legs. Take one Pantoprazole 40mg daily for 6 weeks to protect against heartburn and ulcers. Take Cephalexin (antibiotic) 3x/day for 10 days to help prevent skin infection. Take a multivitamin, stool softener and extra Vitamin C supplement daily. For pain: *CONTINUE TAKING THE PAIN MEDICATIONS PRESCRIBED BY YOUR PAIN MANAGEMENT DOCTOR* IN ADDITION, TAKE: 1 Oxycodone/Acetaminophen (10/325mg) tablet every 3 hours as needed for pain. Activity: You can put as much weight on the operative leg as you want. For the first 6 weeks, all you need to do is walk around the house, go up/down stairs, and sit down/get up. After 6 weeks when everything is healed (and bone has grown into the implant) you will be sent for more intensive outpatient physical therapy. Always use a walker or cane for balance and to prevent falls. Expect to see swelling / bruising from the operative site all the way down to your toes. Wear the Compression stocking on the operative side during the day to minimize how much swelling there is in your foot/ankle. Don't wear the stocking at night. You don't have to wear the stocking on the other side. Disposition: VNS/HOME HEALTH CARE - Home Medications Comprehensive Discharge Medication List: Ambulatory Orders Cyclobenzaprine HCl [Flexeril 10 mg] 10 mg PO BID PRN 03/11/18 Furosemide 20 mg PO DAILY 03/11/18 Gabapentin 600 mg PO TID 03/11/18 Morphine *Sr* [MS Contin -] 30 mg PO Q8H 03/11/18 Multivit-Min/Folic Acid/Sau853 [Alive Women's Gummy Vitamins] 1 each PO DAILY Ramipril 10 mg PO DAILY 03/11/18 Apixaban [Eliquis -] 2.5 mg PO BID #70 tablet 03/22/18 Ascorbic Acid [Vitamin C -] 500 mg PO BID tablet 03/22/18 Cephalexin Monohydrate [Keflex -] 500 mg PO TID #30 capsule 03/22/18 Ferrous Sulfate [Feosol] 325 mg PO BIDWM ud 03/22/18 Oxycodone HCl/Acetaminophen [Percocet 10-325 mg Tablet] 1 each PO Q3H PRN #90 tablet MDD 8 03/22/18 Pantoprazole Sodium [Protonix -] 40 mg PO DAILY #40 tablet.ec 03/22/18 Sennosides/Docusate Sodium [Pericolace -] 1 tablet PO BID tablet 03/22/18
[2018-03-23] MEDS: oxyCODONE HCL 5 MG TABLET PO PRN ×2 (03:02→10:50)
[2018-03-23] MEDS: traMADol HCL 50 MG TABLET PO SCH ×2 (03:26→05:37)
[2018-03-23 05:30] VITALS: BP 112/50; TEMP 97.9
[2018-03-23] MEDS: GABAPENTIN 300 MG CAPSULE (FP) PO SCH (05:37)
[2018-03-23] MEDS: morphine SO4 SUSTAINED ACTING 30 MG TABLET.SA PO SCH (05:37)
[2018-03-23] MEDS: FERROUS SO4 325 MG TABLET (FP) PO SCH (08:00)
[2018-03-23 08:29] LABS: HEMATOCRIT 24.2 % (32.4-45.2); MCH 30.5 pg (25.7-33.7); MCHC 33.1 g/dl (32.0-36.0); MEAN CELL VOLUME 92.2 fl (80-96); MEAN PLT VOLUME 7.9 fl (7.5-11.1); PLATELET COUNT 173 K/MM3 (134-434); RBC 2.63 M/mm3 (3.60-5.2); RDW 14.2 % (11.6-15.6); WHITE BLOOD COUNT 11.3 K/mm3 (4.0-10.8)
[2018-03-23 09:00] LABS: ANION GAP 7 MMOL/L (8-16); BLOOD UREA NITROGEN 21 mg/dl (7-18); CALCIUM 8.3 mg/dl (8.4-10.2); CHLORIDE 108 mmol/L (98-107); CO2 24 mmol/L (22-28); CREATININE 0.7 mg/dl (0.6-1.3); GLUCOSE,RANDOM 98 mg/dl (74-106); POTASSIUM 3.9 mmol/L (3.5-5.1); SODIUM 139 mmol/L (136-145)
[2018-03-23] MEDS: RAMIPRIL 5 MG CAPSULE (FP) PO SCH (10:17)
[2018-03-23] MEDS: FUROSEMIDE 20 MG TABLET (FP) PO SCH (10:18)
[2018-03-23] MEDS: APIXABAN 2.5 MG TABLET PO SCH (10:18)
[2018-03-23] MEDS: PANTOPRAZOLE 40 MG TABLET (FP) PO SCH (10:19)
[2018-03-23] MEDS: SENNOSIDES/DOCUSATE COMBO (SENNA PLUS) TABLET (UD) PO SCH (10:19)
--- NOTE | 2018-03-25 15:16 | PATH ---
Surgical Pathology Report Patient Name: CYNTHIA PHAN Med. Rec. #: [id number] /Age/Gender: 1960 (Age: 58) / F Account: [id number] Location: [facility] Taken: 03/21/2018 Received: 03/21/2018 Reported: 03/25/2018 Physicians: Cam Ward M.D. Specimen(s) Received LEFT FEMORAL HEAD Clinical History Osteoarthritis left hip Final Diagnosis FEMORAL HEAD, LEFT, TOTAL HIP REPLACEMENT: DEGENERATIVE JOINT DISEASE. Electronically Signed Marita Charles M.D. Gross Description Received in formalin labeled "left femoral head," is a 4.5 x 4.2 x 3.9 cm deformed femoral head with a 1.4 cm length portion of femoral neck attached. The margin of resection is smooth. There is a 4 cm in greatest dimension area of eburnation present. The remaining articular surface is burch-brown, granular and pitted. The underlying trabecular bone is yellow and hard. A guest experience representative section is submitted in one cassette, following decalcification. 03/22/2018 [facility]03/22/2018
== END 2018-03-23 12:37 | disposition home health service (06) | DRG 470 ==
LOC: FM/S 08:18
PROVIDERS: ADMIT Student in an Organized Health Care Education/Training Program; ATTEND Student in an Organized Health Care Education/Training Program
PROC: 8E0W0CZ Robotic Assisted Procedure of Trunk Region, Open Approach (ICD-10-PCS; 2018-03-21)
PROC: 0SRB0JZ Replacement of Left Hip Joint with Synthetic Substitute, Open Approach (ICD-10-PCS; principal; 2018-03-21 10:00)
PROC: 30233N1 Transfusion of Nonautologous Red Blood Cells into Peripheral Vein, Percutaneous Approach (ICD-10-PCS; 2018-03-22)
DX: M16.12 Unilateral primary osteoarthritis, left hip (principal); I10 Essential (primary) hypertension; I34.1 Nonrheumatic mitral (valve) prolapse; F32.9 Major depressive disorder, single episode, unspecified; M54.5 Low back pain; M19.90 Unspecified osteoarthritis, unspecified site
CPT/HCPCS: 36415; 36430; 73523-TC-FY; 80048; 85027; 86850; 86900; 86901; 86922; 88304-TC; 88311-TC; 94760; 97116-GP; 97162-GP; J0131; J1100; P9038; P9058

== ENCOUNTER 2020-02-26 14:36 | Emergency (ER) | payer OTHER ==
--- NOTE | 2020-02-26 14:48 | PDOC ---
Rapid Medical Evaluation Time Seen by Provider: 02/26/20 14:43 Medical Evaluation: Allergies Allergy/AdvReac Type Severity Reaction Status Date / Time No Known Allergies Allergy Verified 03/11/18 11:19 02/26/20 14:44 60 year old female pmhx of HTN, chronic pain complaining of right foot pain after sink fell off wall onto foot. PE: TTP over dorsum of foot with swelling Plan XR foot Pt to precede to ED for further management and care Discharge Disposition - Referrals Referrals: Carli Iglesias [Primary Care Provider] - - Patient Instructions - Post Discharge Activity
[2020-02-26 14:56] VITALS: BP 124/71; PULSE 102; BMI 26.6
[2020-02-26] MEDS ORDERED: IBUPROFEN 400 MG TABLET (FP) PO ONE ×2 (15:51→16:04)
--- NOTE | 2020-02-26 15:54 | PDOC ---
History of Present Illness - General Chief Complaint: Injury Stated Complaint: RIGHT FOOT INJURY Time Seen by Provider: 02/26/20 14:43 History Source: Patient Exam Limitations: Clinical Condition - History of Present Illness Initial Comments: 02/26/20 16:06 Patient with no significant past medical history present with complaint of pain and swelling to top of right foot status post kitchen sink accidentally falling on her right foot yesterday. Patient reported she notified building management about loose sink which she was told it would be fixed but was never fixed and sink fell on her right foot. Reported increased pain to dorsum of right foot with ambulation. Patient use cane to walk due to chronic pain prior to injury. Denies any other symptoms Occurred: reports: yesterday Past History - Medical History Allergies/Adverse Reactions: Allergies Allergy/AdvReac Type Severity Reaction Status Date / Time No Known Allergies Allergy Verified 02/26/20 14:50 Home Medications: Ambulatory Orders Cyclobenzaprine HCl 1 tab PO TID 02/26/20 Furosemide 1 tab PO ASDIR 02/26/20 Gabapentin 600 mg PO TID 02/26/20 Ibuprofen 800 mg PO Q8H PRN #20 tablet 02/26/20 Morphine Sulfate [Morphine Sulfate ER] 1 tab PO ASDIR 02/26/20 Oxycodone HCl/Acetaminophen [Percocet 10-325 mg Tablet] 1 each PO QID PRN 02/26/20 Ramipril 1 tab PO DAILY 02/26/20 Venlafaxine HCl ER [Effexor Xr -] 1 tab PO DAILY 02/26/20 Anemia: Yes Asthma: No Cancer: No Cardiac Disorders: No CVA: No COPD: No CHF: No Dementia: No Diabetes: No GI Disorders: No Disorders: No HTN: Yes Hypercholesterolemia: No Liver Disease: No Seizures: No Thyroid Disease: No - Surgical History Abdominal Surgery: No Appendectomy: No Cardiac Surgery: No Cholecystectomy: No Lung Surgery: No Neurologic Surgery: No Orthopedic Surgery: Yes (CTR-BOTH,ACDF FUSION 2000 RIGHT HIP REPLACEMENT 09/2016) - Psycho-Social/Smoking History Smoking Status: No Smoking History: Unknown if ever smoked Have you smoked in the past 12 months: No Number of Cigarettes Smoked Daily: 0 - Substance Abuse Hx (Audit-C & DAST Scrn) How often the patient has a drink containing alcohol: Never Score: In Men: 4 or > Positive; In Women: 3 or > Positive: 0 Screen Result (Pos requires Nsg. Audit-10AR): Negative In the last yr the pt used illegal drug/Rx for NonMed reason: No Score: Yes response is considered Positive: 0 Screen Result (Positive result requires Nsg. DAST-10): Negative Review of Systems - Review of Systems Able to Perform ROS?: Yes Is the patient limited Peruvian proficient: No Constitutional: No: Chills, Fever, Malaise HEENTM: No: Symptoms Reported, See HPI, Eye Pain, Blurred Vision, Tearing, Recent change in vision, Double Vision, Cataracts, Ear Pain, Ocular Prothesis, Ear Discharge, Nose Pain, Nose Congestion, Tinnitus, Nose Bleeding, Hearing Loss, Throat Pain, Throat Swelling, Mouth Pain, Dental Problems, Difficulty Swallowing, Mouth Swelling, Other Respiratory: No: Symptoms reported, See HPI, Cough, Orthopnea, Shortness of Breath, SOB with Exertion, SOB at Rest, Stridor, Wheezing, Productive cough, Hemoptysis, Other Cardiac (ROS): No: Symptoms Reported, See HPI, Chest Pain, Edema, Irregular Heart Rate, Lightheadedness, Palpitations, Syncope, Chest Tightness, Other Musculoskeletal: Yes: Symptoms Reported, See HPI, Joint Swelling (right foot), Muscle Pain (right foot pain) Integumentary: No: Symptoms Reported, Bruising All Other Systems: Reviewed and Negative *Physical Exam - Vital Signs Last Vital Signs Temp Pulse Resp BP Pulse Ox 102 H 18 124/71 99 02/26/20 14:51 02/26/20 14:51 02/26/20 14:51 02/26/20 14:51 - Physical Exam 02/26/20 16:11 GENERAL: Well developed, well nourished. Awake and alert. No acute distress. PULMONARY: No evidence of respiratory distress. MUSCULOSKELETAL : Moderate tenderness to dorsum of right midfoot with mild subjective tenderness of lateral and medial malleolus of right ankle. No visible deformity. SKIN: Warm and dry. Normal capillary refill. Mild localized swelling to dorsum of right midfoot and ankle NEUROLOGICAL: Alert, awake, appropriate. No motor deficits in the lower extremities. Gait is normal without ataxia. PSYCHIATRIC: Cooperative. Good eye contact. Appropriate mood and affect. General Appearance: Yes: Nourished, Appropriately Dressed. No: Apparent Distress Medical Decision Making - Medical Decision Making 02/26/20 16:07 Patient with no significant past medical history present with complaint of pain and swelling to top of right foot status post kitchen sink accidentally falling on her right foot yesterday. Patient reported she notified border management about loose sink which she was told it would be fixed but was never fixed and sink fell on his right foot. Reported increased pain to dorsum of right foot with ambulation. Patient use cane to walk due to chronic pain prior to injury. Denies any other symptoms Exam significant for moderate tenderness to dorsum of right midfoot with mild localized swelling. No visible deformity. Mild subjective tenderness to lateral and medial malleolus of right ankle. Negative anterior and posterior drawer test. X-ray of right ankle and foot shows no acute fracture or dislocation. X-ray shows arthritis changes to foot which is chronic. Right foot wrapped with Michael bandage and postop shoe given. Motrin 800 mg given for pain. Patient stable for discharge to take Motrin as needed for pain with advised use hot compresses as needed for swelling and soak right foot in [place] salt water to help with swelling. Patient advised to keep weight of right foot and stable for discharge with podiatry follow-up Discharge - Discharge Information Problems reviewed: Yes Clinical Impression/Diagnosis: Contusion of right foot, initial encounter Condition: Stable Disposition: HOME - Admission No - Additional Discharge Information Prescriptions: Ibuprofen 800 mg PO Q8H PRN #20 tablet PRN Reason: foot pain - Follow up/Referral Referrals: Mauri Drake MD [Staff Physician] - - Patient Discharge Instructions Patient Printed Discharge Instructions: DI for Contusion, DI for Foot Sprain Additional Instructions: X-ray of your foot shows no acute fracture or dislocation. Your pain is likely from foot contusion causing swelling and pain. Take prescribed medication as needed for pain. Soak right foot in [place] salt water to help with swelling and pain. Follow-up with referring podiatry if symptoms persist for more than 4 days - Post Discharge Activity
== END 2020-02-26 16:09 | disposition home or self-care (01) ==
LOC: JER 14:36 → JERFT 14:36 → JER 16:09
DX: S90.31XA Contusion of right foot, initial encounter (principal)
CPT/HCPCS: 73630-TC-RT-FY; 99283-25